=== PATIENT | male | born 1960 | race Caucasian/White ===

== ENCOUNTER → 2016-11-09 | Outpatient (CLI) | payer OTHER ==
--- NOTE | 2016-11-09 11:19 | DIAGNOSTIC IMAGING REPORT ---
[facility] CLINICAL HISTORY: 56 years-old Male presenting with BENIGN ENLARGEMENT OF PROSTATE. TECHNIQUE: Single supine view of the abdomen was obtained. COMPARISON: None. FINDINGS: Moderate stool burden in the colon. This degrades evaluation for renal calculus. No calcification projects over the kidneys or along the courses of the ureters. No bladder calculi noted. No evidence of phleboliths. Nonobstructive bowel gas pattern. No gross pneumoperitoneum. Osseous structures intact. Lung bases clear. IMPRESSION: 1. No acute intra-abdominal pathology. Electronically signed by: Can Luz M.D. 11/09/2016 11:18 AM Dictated Date/Time: 11/09/2016 11:17 AM
== END | disposition home or self-care (01) ==
LOC: C.RAD 11:01
PROVIDERS: ATTEND Urology
DX: N40.0 Benign prostatic hyperplasia without lower urinary tract symptoms (principal)

== ENCOUNTER → 2017-11-06 | Outpatient (CLI) | payer OTHER ==
--- NOTE | 2017-11-06 12:31 | DIAGNOSTIC IMAGING REPORT ---
CT SCAN OF THE ABDOMEN AND PELVIS WITHOUT IV CONTRAST CLINICAL HISTORY: Nephrolithiasis. COMPARISON STUDY: KUB dated 11/09/2016. TECHNIQUE: CT scan of the abdomen and pelvis is performed from the lung bases to the proximal femora. Images are reviewed in the axial, sagittal, and coronal planes. IV contrast was not administered for this examination. A dose lowering technique was utilized adhering to the principles of ALARA. CT DOSE: 1530.65 mGy.cm FINDINGS: Lung bases: The heart is normal in size and without pericardial effusion. The coronary arteries are densely calcified. The lung bases are clear. A tiny hiatal hernia is observed. Liver: The unenhanced liver is enlarged, measuring 23.5 cm in length. The liver demonstrates diffusely diminished attenuation consistent with hepatic steatosis. There is no intrahepatic biliary ductal dilatation. Gallbladder: There are small calcified gallstones. Spleen: Normal in size and attenuation. Pancreas: There is moderate fatty atrophy of the pancreas. Adrenal glands: Unremarkable. Kidneys: The unenhanced kidneys are normal in size. There is no left-sided hydronephrosis. There is moderate right hydronephrosis, which is somewhat atypical appearance as the lower pole calyces appear normal. There is no evidence of a duplicated ureter, and this may be related to a UPJ obstruction or possibly an obstructing parapelvic cyst affecting the upper pole. There is a punctate nonobstructing calculus in the right lower pole. No calculi are identified in the left kidney. There is no evidence of contour deforming renal mass lesion. Abdominal vasculature: The abdominal aorta is normal in course and caliber noting mild atherosclerotic calcification. Bowel: The small bowel and colon are normal in course and caliber. The appendix is well-visualized and normal. Peritoneum: There is no intraperitoneal free air or abdominal ascites. There is a small fat-containing umbilical hernia. Soft tissue induration is noted in the periumbilical fat. Lymphadenopathy: None. Pelvic viscera: The bladder is decompressed and grossly unremarkable. The prostate and seminal vesicles are normal as visualized. Skeletal structures: There is mild lumbosacral spondylosis. No lytic or blastic lesions are seen. IMPRESSION: 1. There is moderate hydronephrosis involving the right kidney which spares the lower pole collecting system. No duplicated ureter is clearly identified, and this may represent a UPJ type obstruction or could potentially represent a parapelvic cyst obstructing the upper pole. The right ureter is normal in caliber. CT urogram useful for further assessment. 2. There is no left-sided hydronephrosis. 3. There is a punctate nonobstructing right renal calculus. 4. Hepatomegaly and hepatic steatosis. 5. Cholelithiasis. 6. There is periumbilical soft tissue induration. Clinical correlation will be required. 7. Additional findings as above. Electronically signed by: Pepito Bruce M.D. 11/06/2017 12:29 PM Dictated Date/Time: 11/06/2017 12:14 PM
== END | disposition home or self-care (01) ==
LOC: C.CTS 11:19
PROVIDERS: ATTEND Urology
DX: N13.30 Unspecified hydronephrosis (principal); N20.0 Calculus of kidney; K76.0 Fatty (change of) liver, not elsewhere classified; K80.20 Calculus of gallbladder without cholecystitis without obstruction